=== PATIENT | female | born 1960 | race Caucasian/White ===

== ENCOUNTER → 2018-05-26 | Outpatient (CLI) | payer OTHER ==
[~2018-05-26] MED LIST: DOCU100T9 PO; FLUO10CA26 PO; LAMO100T83 PO; LORA-444 PO; LURA40TA PO; PERCOCET PO; TRAZ300T15 PO; VAL2 PO
--- NOTE | 2018-05-26 13:37 | CONS ---
Assessment/Plan Assessment/Plan Hospital Course (Demo Recall) This is a 57-year-old female with right worse than left knee pain. Her symptoms are not straightforward as the likely overlap with lumbar radiculopathy. She also has bilateral greater trochanteric bursitis which is likely result of her lumbar spine issues. She has moderate arthritis in bilateral knees however on examination pain cannot be elicited in her symptoms again are mixed from osteoarthritis as well as lumbar radiculopathy. At this time I would like to continue conservative management working on a multidirectional approach focusing on her lumbar spine, greater trochanteric bursitis, and bilateral knee OA and pain. I would like to start the patient on meloxicam however the patient has disclosed that she recently had chest pain and is scheduled to see manager professional development. Therefore I will hold off on prescribing any NSAIDs at this time and she can get back to me with what her manager professional development says about NSAIDs. In the meantime I like to place an authorization for bilateral steroid injections for the knees. I like to place an authorization for physical therapy for bilateral knee OA, lumbar radiculopathy, bilateral greater trochanteric bursitis. She will follow-up after authorization for bilateral knee steroid injection. Consultation Date/Type/Reason Admit Date/Time Date of Consultation: May 26, 2018 Reason for Consultation Bilateral knee and hip pain Date/Time of Note DATE: 05/26/18 TIME: 13:27 Hx of Present Illness Is a 57-year-old female with a chief complaint of right and left knee pain. The pain is worse in the right knee. The pain began approximately 2 years ago. The patient's pain is in the anterior aspect of the right and left knee. Pain is not radiating to the lower leg. The pain is rated as a 7/10. The patient has numbness over the lateral aspect and anterior aspect of her thigh.. It is exacerbated by more activity however sitting and lying down causes her significant pain as well the pain is worse at night. Pain is not relieved by NSAID's. Patient has been taking naproxen on a p.r.n. basis as well as using ice. Patient has had bilateral steroid injections approximately 2 years ago and itching injection approximately 1 year ago. They did not help significantly. She also complaining of bilateral lateral hip pain. She denies any groin pain. Causes pain when she lies on her side she does have significant. Surgical history for her cervical and lumbar spine. She is currently having some issues and seeing her spine surgeon in the near future. ----- Duration: 2 years Injury: No Walking tolerance: 6 blocks Limp: No Support: No Swelling: No Crepitation: No Instability: No Stairs: Uses banister Physical Therapy: No Injections: Yes NSAID's: Naproxen as needed Prior surgery: Lumbar spine and cervical surgery Back pain: Yes Hip pain: Lateral GT pain Risk of AVN : No Patient denies fever, chills, shortness of breath, chest pain, nausea/vomiting, constipation, diarrhea, numbness, and tingling. Past Medical History Angina/chest pain Thyroid nodules osteoarthritis Chronic neck and back pain Home Meds Active Scripts Oxycodone Hcl/Acetaminophen (Percocet) 1 Tab Tab, 2 TAB PO Q4H PRN for PAIN LEVEL 6-10, #60 TAB Prov:DIDI LYON [employer]PER[employer]OR 01/31/14 Trazodone Hcl* (Trazodone Hcl*) 300 Mg Tablet, 100 MG PO HS for 30 Days, TAB Prov:DIDI LYON [employer]PER[employer]OR 01/31/14 Reported Medications Docusate Sodium (Stool Softener) 100 Mg Tablet, 100 MG PO BID PRN for CONSTIPATION, TAB 01/25/14 Lorazepam* (Ativan*) 2 Mg Tablet, 2 MG PO Q8 PRN for ANXIETY, TAB 01/25/14 Fluoxetine Hcl* (Prozac*) 10 Mg Capsule, 20 MG PO DAILY, CAP 01/25/14 Diazepam* (Valium*) 2 Mg Tab, 2 MG PO, TAB 01/25/14 Lurasidone Hcl (LATUDA) 40 Mg Tablet, 40 MG PO HS 08/22/13 Lamotrigine* (Lamictal*) 100 Mg Tablet, 100 MG PO DAILY, TAB 08/22/13 Allergies: Coded Allergies: No Known Allergy (Unverified , 01/29/14) Past Surgical History 2 cervical fusions 2 lumbar spine fusions Hysterectomy and oophorectomy Breast augmentation Family History Significant Family History: no pertinent family hx Social History Alcohol Use: none Smoking Status: Never smoker Drug Use: none Exam/Review of Systems Exam Vitals Weight: 150 pounds Height: 5 foot 6 inches Temperature: 90.6 Heart Rate: 80 Blood Pressure: 108/69 Respiratory Rate: 12 Exam General: Awake, alert, in no acute distress, pleasant and cooperative Heart: regular rhythm Lungs: breathing comfortably, no tachypnea or dyspnea MUSCULOSKELETAL: Right and Left Knee This is a well developed female who is alert, oriented times three and in no apparent distress. Skin is intact over the right and left knee as well as the lo wer extremity with no abrasions, lacerations, or ulcerations. Observation of the patient's gait reveals a non-antalgic gait with no thrust. Frontal plane alignment is valgus on the right > left knees. There is NO pain on palpation of either joint line. The patient demonstrates grinding anteriorly with ROM. Range of motion: 3 extension to approximately 130 degrees of flex on the right ion and 0120 on the left. Collateral ligament testing reveals no instability with varus or valgus stress at 0 and 30 degrees of flexion. Negative Merlin's and negative posterior drawer. Neurovascularly intact with 5/5 EHL/tibialis anterior/gastroc. Sensation intact to light touch in a sural, saphenous, deep peroneal, superficial peroneal, medial and lateral plantar nerve distribution. Palpable, symmetric dorsalis pedis and posterior tibial pulses in both lower extremities. Hip examination normal except for tenderness to palpation along the greater trochanteric bursa. Imaging Imaging The patient received a standard set of films today that were personally reviewed. Imaging included a standing bilateral knee AP, PA flexion, merchant views and a dedicated lateral of the right and left knee: There is valgus alignment of the knee. There is moderate loss of joint space lateral and medial compartment(s). There is osteophyte formation. There is subchondral sclerosis. There are subchondral cysts. Degenerative changes are most severe in the lateral compartment(s) LUIS MIGUEL MUÑOZ MD May 26, 2018 13:37
--- NOTE | 2018-05-27 11:16 | RADRPT ---
PROCEDURE: XR Knees. CLINICAL INDICATION: Bilateral knee pain. TECHNIQUE: Total of eight views. Weightbearing frontal, oblique, and lateral views of the both kne es. Patellar views of both knees. COMPARISON: No prior study is available for comparison. FINDINGS: There is no fracture or dislocation. The soft tissues are normal. There are degenerative changes with osteophytes arising from all 3 joint compartment margins. There is no lytic or blastic lesion. There is no radiopaque foreign body. IMPRESSION: 1. Degenerative changes. 2. Otherwise unremarkable images of both knees. RPTAT: QQ .Doni Pineda MD, MD Date Time Electronically viewed and signed by .Doni Pineda MD, on 05/27/2018 11:15 .R/
== END | disposition home or self-care (01) ==
LOC: HKI 11:59
PROVIDERS: ATTEND Orthopaedic Surgery Adult Reconstructive Orthopaedic Surgery
DX: M25.561 Pain in right knee (principal); M25.562 Pain in left knee; M17.0 Bilateral primary osteoarthritis of knee
CPT/HCPCS: 73564; Z7500; G0463

== ENCOUNTER → 2018-07-11 | Outpatient (CLI) | payer OTHER ==
--- NOTE | 2018-07-11 13:16 | CONS ---
Consult Date/Type/Reason Admit Date/Time Initial Consult Date Date/Time of Note DATE: 07/11/18 TIME: 13:14 Subjective 58-year-old female follows up today for bilateral knee steroid injection with right worse than left knee pain. Denies any changes in her symptoms. She has ongoing cardiac workup for unknown cause of chest pain. Objective Vitals Weight: 155 pounds Height: 5 feet 6 inches Temperature: 90.1 Heart Rate: 89 Blood Pressure: 136/86 Respiratory Rate: 14 Exam General: Awake, alert, in no acute distress, pleasant and cooperative Heart: regular rhythm Lungs: breathing comfortably, no tachypnea or dyspnea MUSCULOSKELETAL: Bilateral lower extremity: Skin intact. No erythema. Sensation intact to light touch in a sural, saphenous, deep peroneal, superficial peroneal, medial and lateral plantar nerve distribution. Motor is intact, patient able to dorsiflex and plantarflex ankle and extend and flex great toe. Dorsalis Pedis pulse +2, Brisk capillary refill. Compartments are soft. Calves non-tender to palpation bilaterally. Results/Medications Home Meds Active Scripts Oxycodone Hcl/Acetaminophen (Percocet) 1 Tab Tab, 2 TAB PO Q4H PRN for PAIN LEVEL 6-10, #60 TAB Prov:DIDI LYON [employer]PERATOR 01/31/14 Trazodone Hcl* (Trazodone Hcl*) 300 Mg Tablet, 100 MG PO HS for 30 Days, TAB Prov:DIDI LYON [employer] OPERATOR 01/31/14 Reported Medications Docusate Sodium (Stool Softener) 100 Mg Tablet, 100 MG PO BID PRN for CONS TIPATION, TAB 01/25/14 Lorazepam* (Ativan*) 2 Mg Tablet, 2 MG PO Q8 PRN for ANXIETY, TAB 01/25/14 Fluoxetine Hcl* (Prozac*) 10 Mg Capsule, 20 MG PO DAILY, CAP 01/25/14 Diazepam* (Valium*) 2 Mg Tab, 2 MG PO, TAB 01/25/14 Lurasidone Hcl (LATUDA) 40 Mg Tablet, 40 MG PO HS 08/22/13 Lamotrigine* (Lamictal*) 100 Mg Tablet, 100 MG PO DAILY, TAB 08/22/13 Assessment/Plan Hospital Course (Demo Recall) 58-year-old female with right worse than left knee pain and moderate osteoarthritis. She also has significant lumbar radiculopathy and bilateral greater trochanteric bursitis. She has started physical therapy as prescribed last visit. Plan: Bilateral knee steroid injection Continue physical therapy Low impact activity Ice Follow-up 3-6 months Assessment/Plan (Daily) Bilateral knee steroid injection procedure: Risks and benefits of steroid injection reviewed with patient. The risks include infection, failure, pain, swelling, nerve/tendon/ligament damage. The patient verbalized understanding and verbal consent was obtained prior to procedure. The left and right knee was prepped in a sterile fashion with alcohol and betadine the site of injection was confirmed. Lateral approach was used. The skin and capsule was anesthetized with 3mL 1% lidocaine. The left and right knee were each injected with 2mL 1% lidocaine, 2mL 0.25% bupivacaine, 40mg Depo- Medrol. Injection flowed freely. Good hemostasis was achieved and no complications noted. The patient tolerated the procedure well. Limit activity and ice for 24-48 hours LUIS MIGUEL MUÑOZ MD Jul 11, 2018 13:16
== END | disposition home or self-care (01) ==
LOC: HKI 11:35
PROVIDERS: ATTEND Orthopaedic Surgery Adult Reconstructive Orthopaedic Surgery
DX: M17.0 Bilateral primary osteoarthritis of knee (principal); M54.16 Radiculopathy, lumbar region; M70.62 Trochanteric bursitis, left hip; M70.61 Trochanteric bursitis, right hip
CPT/HCPCS: 20610; Z7500; Z7610; G0463